=== PATIENT | male | born 1965 | race Caucasian/White ===

== ENCOUNTER 2016-06-26 16:24 | Inpatient (IN) | payer BC ==
[~2016-06-26] VITALS: Ht 182.9 cm; Wt 93.0 kg
[2016-06-26] MEDS: Vancomycin 1.5 GM in D5W 325 ML IVPB SCH (01:00)
[2016-06-26] MEDS ORDERED: PROZAC10 MG ORAL (16:56)
[2016-06-26] MEDS ORDERED: DEPAKOTE250 MG PO (16:56)
[2016-06-26] MEDS ORDERED: PROPRANOLOL HCL10 MG ORAL (16:56)
[2016-06-26] MEDS ORDERED: ZYPREXA2.5 MG ORAL (16:56)
[2016-06-26] MEDS ORDERED: AMBIEN5 MG ORAL (16:56)
--- NOTE | 2016-06-26 17:14 | Emergency Room Report ---
History of Present Illness General Chief Complaint: Fever Source: Patient Present Illness HPI Patient has had blood in her urine over the past 2 days He also had reported increased fevers and chills over the past few days denies any trauma Denies any headache visual changes Patient had apparently presented to his primary physician We did find blood in the urine and sent him to the ER for further eval patient denies any flank pain denies any chest pain denies any shortness of breath he reports mild URI symptoms over the past last week Denies any neck pain or photophobia Allergies: Coded Allergies: BUPROPION (Verified Allergy, Unknown, 06/26/16) SERTRALINE (Verified Allergy, Unknown, 06/26/16) Patient History Past Medical History: see triage record Pertinent Family History: none Reviewed Nursing Documentation: PMH: Agreed, PSxH: Agreed Nursing Documentation-PMH History Of Psychiatric Problem: Yes - Bipolar Review of Systems All Other Systems: negative except mentioned in HPI Physical Exam Vital Signs Date Time Temp Pulse Resp B/P Pulse Ox O2 Delivery O2 Flow Rate FiO2 06/26/16 16:44 100.8 112 16 122/71 95 Room Air Sp02 EP Interpretation: reviewed, normal General Appearance: well appearing, no apparent distress Head: normocephalic, atraumatic Eyes: bilateral eye EOMI, bilateral eye PERRL ENT: hearing grossly normal, normal pharynx, TMs + canals normal, uvula midline Neck: full range of motion, supple, no meningismus, no bony tend Respiratory: lungs clear, normal breath sounds, no rhonchi, no respiratory distress, no retraction, no accessory muscle use Cardiovascular #1: normal peripheral pulses, regular rate, rhythm, no edema, no gallop, no JVD, no murmur Gastrointestinal: normal bowel sounds, non tender, soft, no mass, no organomegaly, non-distended, no guarding, no hernia, no pulsatile mass, no rebound Genitourinary: no CVA tenderness Musculoskeletal: normal inspection Neurologic: oriented x3, responsive, cash management associate III-XII nml as tested, motor strength/ tone normal, sensory intact Psychiatric: mood/affect normal Skin: normal color, no rash, warm/dry, palpation normal Lymphatic: normal inspection, no adenopathy Medical Decision Making Diagnostic Impression: Primary Impression: Fever Additional Impressions: Sepsis UTI (urinary tract infection) Pyelonephritis ER Course Multiple depressions considered including but not limited to Pyelo, UTI, kidney stone obstructive stone Patient's CT does not show any obvious acute pathology Urine sample does show evidence of bacteria possible hemorrhagic cystitis considered patient's white blood cell count however is elevated patient has had fever over several days and consideration for sepsis is made patient was given antibiotics here and requires further inpatient care Labs Test 06/26/16 17:11 06/26/16 17:20 Urine Color Brown Urine Appearance Turbid Urine pH 5 (4.5-8.0) Urine Specific [place] 1.015 (1.005-1.035) Urine Protein 4+ (NEGATIVE) Urine Glucose (UA) Negative (NEGATIVE) Urine Ketones 1+ (NEGATIVE) Urine Occult Blood 5+ (NEGATIVE) Urine Nitrite Negative (NEGATIVE) Urine Bilirubin Negative (NEGATIVE) Urine Urobilinogen 1 MG/DL (0.0-1.0) Urine Leukocyte Esterase 2+ (NEGATIVE) Urine RBC 10-15 /HPF (0 - 0) Urine WBC 5-10 /HPF (0 - 0) Urine Squamous Epithelial Cells None /LPF (NONE/OCC) Urine Amorphous Sediment Few /LPF (NONE) Urine Bacteria Moderate /HPF (NONE) Urine Yeast Moderate /HPF (NONE) White Blood Count 14.4 K/UL (4.8-10.8) Red Blood Count 4.51 M/UL (4.70-6.10) Hemoglobin 13.4 G/DL (14.2-18.0) Hematocrit 40.6 % (42.0-52.0) Mean Corpuscular Volume 90 FL (80-99) Mean Corpuscular Hemoglobin 29.6 PG (27.0-31.0) Mean Corpuscular Hemoglobin Concent 33.0 G/DL (32.0-36.0) Red Cell Distribution Width 11.8 % (11.6-14.8) Platelet Count 107 K/UL (150-450) Mean Platelet Volume 9.8 FL (6.5-10.1) Neutrophils (%) (Auto) 72.6 % (45.0-75.0) Lymphocytes (%) (Auto) 8.1 % (20.0-45.0) Monocytes (%) (Auto) 17.0 % (1.0-10.0) Eosinophils (%) (Auto) 0.0 % (0.0-3.0) Basophils (%) (Auto) 2.2 % (0.0-2.0) Prothrombin Time 13.4 SEC (9.30-11.50) Prothromb Time International Ratio 1.3 (0.9-1.1) Activated Partial Thromboplast Time 30 SEC (23-33) Sodium Level 132 mEQ/L (135-145) Potassium Level 4.2 mEQ/L (3.4-4.9) Chloride Level 91 mEQ/L (98-107) Carbon Dioxide Level 27 mEQ/L (20-30) Anion Gap 14 (5-15) Blood Urea Nitrogen 18 mg/dL (7-23) Creatinine 1.3 mg/dL (0.7-1.2) Estimat Glomerular Filtration Rate 58.0 mL/min (>60) Glucose Level 115 mg/dL (74-106) Calcium Level 9.3 mg/dL (8.6-10.2) Total Bilirubin 0.9 mg/dL (0.0-1.2) Aspartate Amino Transf (AST/SGOT) 26 U/L (5-40) Alanine Aminotransferase (ALT/SGPT) 24 U/L (3-41) Alkaline Phosphatase 56 U/L (40-129) Total Protein 7.0 g/dL (6.6-8.7) Albumin 3.8 g/dL (3.5-5.2) Globulin 3.2 g/dL Albumin/Globulin Ratio 1.1 (1.0-2.7) Lipase 24 U/L (< 60) CT/MRI/US Diagnostic Results CT/MRI/US Diagnostic Results : Impression CT abdomen pelvis: No obvious acute disease Last Vital Signs Date Time Temp Pulse Resp B/P Pulse Ox O2 Delivery O2 Flow Rate FiO2 06/26/16 16:44 100.8 112 16 122/71 95 Room Air Status: improved Disposition: ELOPED Condition: Serious [place] SAAVEDRA D.O. Jun 26, 2016 17:14
[2016-06-26 17:40] LABS: BASOPHILS % (AUTO) 2.2 % (0.0-2.0); LYMPHOCYTES % (AUTO) 8.1 % (20.0-45.0); MEAN CORPUSCULAR HEMOGLOBIN 29.6 PG (27.0-31.0); MEAN CORPUSCULAR VOLUME 90 FL (80-99); MEAN PLATELET VOLUME 9.8 FL (6.5-10.1); NEUTROPHILS % (AUTO) 72.6 % (45.0-75.0); PLATELET COUNT 107 K/UL (150-450); RED BLOOD COUNT 4.51 M/UL (4.70-6.10); RED CELL DISTRIBUTION WIDTH 11.8 % (11.6-14.8); WHITE BLOOD COUNT 14.4 K/UL (4.8-10.8)
[2016-06-26 17:42] LABS: APPEARANCE,URINE TURBID; KETONES,URINE 1+ (NEGATIVE); LEUKOCYTE ESTERASE ,URINE 2+ (NEGATIVE); NITRITE,URINE NEGATIVE (NEGATIVE); PH,URINE 5 (4.5-8.0); PROTEIN,URINE 4+ (NEGATIVE); UROBILINOGEN,URINE 1 MG/DL (0.0-1.0)
[2016-06-26 17:54] LABS: INR 1.3 (0.9-1.1); PROTHROMBIN TIME 13.4 SEC (9.30-11.50)
[2016-06-26 17:56] LABS: ALBUMIN/GLOBULIN RATIO 1.1 (1.0-2.7); CALCIUM 9.3 mg/dL (8.6-10.2); CREATININE 1.3 mg/dL (0.7-1.2); POTASSIUM 4.2 mEQ/L (3.4-4.9)
[2016-06-26 18:17] LABS: AMORPHOUS SEDIMENT,UR FEW /LPF; BACTERIA,URINE MODERATE /HPF; YEAST,URINE MODERATE /HPF
[2016-06-26 19:30] VITALS: BP 130/71
[2016-06-26] MEDS ORDERED: cefTRIAXone 1 GM in NS 55 ML IVPB ONE (19:30)
[2016-06-26] MEDS ORDERED: Nitroglycerin Subl 0.4mg tab (Bottle Of 25) SL PRN (20:15)
[2016-06-26] MEDS ORDERED: Miralax 17gm pkt ORAL PRN (20:15)
[2016-06-26] MEDS ORDERED: DuoNeb 0.5-3(2.5)mg/3ml neb HHN PRN (20:15)
[2016-06-26] MEDS ORDERED: Morphine Sulfate 2mg/ml Inj IVP PRN (20:15)
[2016-06-26] MEDS ORDERED: Propranolol 10mg tab ORAL SCH (21:00)
[2016-06-26] MEDS: Heparin 5000 units/ml inj SUBQ SCH (21:00)
[2016-06-26 21:36] VITALS: BP 136/72
[2016-06-26 22:33] VITALS: BP 142/82
[2016-06-26] MEDS ORDERED: Cefepime 2gm ONE (23:33)
[2016-06-26] MEDS ORDERED: Vancomycin 1gm inj IVPB ONE (23:33)
[2016-06-27 00:41] VITALS: BP 141/78
[2016-06-27] MEDS: Cefepime HCl 2 GM in D5W 110 ML IV SCH ×2 (01:34→10:25)
[2016-06-27] MEDS ORDERED: Zolpidem 5mg tab ORAL PRN (06:00)
[2016-06-27 07:24] LABS: LYMPHOCYTES % (AUTO) 17.8 % (20.0-45.0); MEAN CORPUSCULAR HEMOGLOBIN 30.2 PG (27.0-31.0); MEAN CORPUSCULAR HGB CONC 33.7 G/DL (32.0-36.0); MEAN CORPUSCULAR VOLUME 90 FL (80-99); MEAN PLATELET VOLUME 10.1 FL (6.5-10.1); MONOCYTES % (AUTO) 17.6 % (1.0-10.0); NEUTROPHILS % (AUTO) 63.6 % (45.0-75.0); PLATELET COUNT 102 K/UL (150-450); RED BLOOD COUNT 4.04 M/UL (4.70-6.10); RED CELL DISTRIBUTION WIDTH 11.4 % (11.6-14.8)
[2016-06-27 07:35] LABS: ALANINE AMINOTRANSFERASE 21 U/L (3-41); ANION GAP 15 (5-15); ASPARTATE AMINO TRANSFERASE 22 U/L (5-40); CALCIUM 9.3 mg/dL (8.6-10.2); CARBON DIOXIDE 27 mEQ/L (20-30); CHLORIDE 96 mEQ/L (98-107); CREATININE 1.1 mg/dL (0.7-1.2); GLOMERULAR FILTRATION RATE > 60 mL/min (>60); HEMOLYSIS 1; SODIUM 138 mEQ/L (135-145); TOTAL PROTEIN 6.4 g/dL (6.6-8.7)
[2016-06-27] MEDS ORDERED: Promethazine/Codeine 5ml UD ORAL PRN (07:45)
[2016-06-27 08:12] LABS: APPEARANCE,URINE CLEAR; KETONES,URINE NEGATIVE (NEGATIVE); PH,URINE 7 (4.5-8.0); PROTEIN,URINE 1+ (NEGATIVE)
[2016-06-27 08:13] LABS: BACTERIA,URINE OCCASIONAL /HPF; LEUKOCYTE ESTERASE ,URINE 1+ (NEGATIVE); NITRITE,URINE NEGATIVE (NEGATIVE); RBC,URINE 30-40 /HPF (0 - 0); SQUAMOUS EPITHELIAL CELL,UR OCCASIONAL /LPF (NONE/OCC); UROBILINOGEN,URINE NORMAL MG/DL (0.0-1.0)
[2016-06-27 08:27] VITALS: BP 126/71
[2016-06-27] MEDS: Heparin 5000 units/ml inj SUBQ SCH (08:52)
[2016-06-27] MEDS ORDERED: OLANZapine 2.5mg tab ORAL SCH ×2 (09:00→21:00)
[2016-06-27] MEDS ORDERED: FLUoxetine 10mg cap ORAL SCH ×2 (09:00)
[2016-06-27] MEDS ORDERED: Propranolol 10mg tab ORAL SCH (09:00)
[2016-06-27] MEDS ORDERED: Propranolol 10mg tab ORAL ONE (09:00)
--- NOTE | 2016-06-27 10:57 | Diagnostic Imaging Report ---
Indication: Abdominal pain, blood in urine over the past 2 days Technique: Spiral acquisitions obtained through the abdomen and pelvis. No oral contrast utilized, per emergency room physician request No IV contrast utilized, per referring physician request.. Multiplanar reconstructions were generated. Total dose length product 1013 mGycm. CTDIvol(s) 16 mGy Comparison: None Findings: No renal or ureteral calculi demonstrated. No hydronephrosis nor hydroureter. The lack of IV contrast limits assessment of the renal parenchyma. No gross renal mass or cyst demonstrated. The prostate is prominent. The bladder is nondistended. The appendix is normal. No evidence of diverticulosis or diverticulitis. No small bowel distention. No free or loculated intraperitoneal air or fluid. There is a tiny fat containing umbilical hernia. There is a small fat-containing left inguinal hernia. Lack of IV contrast limits assessment of the other solid organs. The liver demonstrates a subcentimeter low-attenuation lesion in segment 2, too small to characterize. The gallbladder is nondistended. No definite stones. No biliary ductal dilatation. The pancreas, spleen, are unremarkable. No retroperitoneal or mesenteric mass or adenopathy. No pelvic mass or adenopathy. The included lung bases demonstrate some consolidation and atelectasis bilaterally. 3 mm nodule is seen in the right middle lobe, image 17 of series 5. The bones are unremarkable. Impression: No findings to explain stated clinical history of hematuria. No evidence of urinary stone disease. Note, however, limited assessment of the urinary tract in the absence of IV contrast. Recommend multiphasic postcontrast scanning, as clinically indicated No acute abnormality or findings to explain stated clinical history of abdominal pain 3 mm right middle lobe lung nodule. If there is no significant smoking history or other risk factors for lung carcinoma, no further followup is necessary. If there are risk factors, recommend 6-[address] Subcentimeter left lobe liver low-attenuation lesion, too small to characterize, most likely benign simple cysts or bile hamartomas. No further followup necessary Basilar consolidation and atelectasis bilaterally Incidental findings as noted, including fat-containing umbilical and left inguinal hernias This agrees with the preliminary interpretation provided overnight by Dr. Andino The CT scanner at [facility] [place] is accredited by the [employer] and the scans are performed using protocols designed to limit radiation exposure to as low as reasonably achievable to attain images of sufficient resolution adequate for diagnostic evaluation.
[2016-06-27] MEDS: Vancomycin 1.5 GM in D5W 325 ML IVPB SCH (11:12)
--- NOTE | 2016-06-27 11:19 | Consultation ---
Consult Note Consult Note ID # [id number] ANGEL MARRERO M.D. Jun 27, 2016 11:19
[2016-06-27 12:00] VITALS: BP 120/70
--- NOTE | 2016-06-27 12:17 | Diagnostic Imaging Report ---
Indication: DYSPNEA Technique: One view of the chest Comparison: none Findings: Lung volumes are low. This results in crowding of the vascular markings and basilar atelectatic changes. The heart is borderline enlarged. No focal airspace consolidation. No effusions Impression: Hypoventilatory exam. Bibasilar atelectasis No definite acute process otherwise
--- NOTE | 2016-06-27 15:59 | History and Physical ---
History of Present Illness General Date patient seen: Jun 27, 2016 Reason for Hospitalization: Fever Present Illness HPI 51 year old male with hx of depression, anxiety presented to ER with CC of blood in her urine, fevers and chills over the past few days denies any trauma He was diagnosed to have pyelonephritis and admitted for further care. Allergies: Coded Allergies: BUPROPION (Verified Allergy, Unknown, 06/26/16) SERTRALINE (Verified Allergy, Unknown, 06/26/16) Medication History Scheduled Divalproex Sodium* (Depakote*), 250 MG PO Q12HR, (Reported) Fluoxetine Hcl* (Prozac*), 10 MG ORAL DAILY, (Reported) Olanzapine* (Zyprexa*), 2.5 MG ORAL DAILY, (Reported) Propranolol Hcl* (Inderal*), 10 MG ORAL THREE TIMES A DAY, (Reported) Scheduled PRN Zolpidem Tartrate* (Ambien*), 5 MG ORAL BEDTIME PRN for Insomnia, (Reported) Patient History Healthcare decision maker N/A Resuscitation status Full Code Advanced Directive on File Past Medical/Surgical History Past Medical/Surgical History: (1) Depression Review of Systems All Other Systems: negative except mentioned in HPI Physical Exam Lines, tubes and drains: peripheral, central line HEENT: normocephalic, atraumatic, PERRL Neck: non-tender Respiratory/Chest: chest wall non-tender, normal breath sounds Cardiovascular/Chest: normal peripheral pulses, regular rhythm Last 24 Hour Vital Signs Date Time Temp Pulse Resp B/P Pulse Ox O2 Delivery O2 Flow Rate FiO2 06/27/16 12:00 98.2 92 18 120/70 96 Room Air 06/27/16 09:12 116 18 Room Air 21 06/27/16 08:51 116 105/66 06/27/16 08:27 98.1 91 18 126/71 98 Room Air 06/27/16 00:41 100.2 98 20 141/78 98 Room Air 06/26/16 22:46 101 142/82 06/26/16 22:33 99.9 101 20 142/82 98 Room Air 06/26/16 21:42 100.2 95 16 136/72 95 Room Air 06/26/16 21:36 100.2 95 16 136/72 95 Room Air 06/26/16 19:30 100.2 90 16 130/71 95 Room Air 06/26/16 16:44 100.8 112 16 122/71 95 Room Air Intake and Output 06/26/16 06/27/16 19:00 07:00 Intake Total 295 ml Output Total 50 ml Balance 245 ml Intake Oral 240 ml IV Total 55 ml Output Urine Total 50 ml # Voids 6 Laboratory Tests Test 06/26/16 17:11 06/26/16 17:20 06/27/16 03:00 06/27/16 05:10 Urine Color Brown Pale yellow Urine Appearance Turbid Clear Urine pH 5 (4.5-8.0) 7 (4.5-8.0) Urine Specific [place] 1.015 (1.005-1.035) 1.005 (1.005-1.035) Urine Protein 4+ (NEGATIVE) H 1+ (NEGATIVE) H Urine Glucose (UA) Negative (NEGATIVE) Negative (NEGATIVE) Urine Ketones 1+ (NEGATIVE) H Negative (NEGATIVE) Urine Occult Blood 5+ (NEGATIVE) H 5+ (NEGATIVE) H Urine Nitrite Negative (NEGATIVE) Negative (NEGATIVE) Urine Bilirubin Negative (NEGATIVE) Negative (NEGATIVE) Urine Urobilinogen 1 MG/DL (0.0-1.0) H Normal MG/DL (0.0-1.0) Urine Leukocyte Esterase 2+ (NEGATIVE) H 1+ (NEGATIVE) H Urine RBC 10-15 /HPF (0 - 0) H 30-40 /HPF (0 - 0) H Urine WBC 5-10 /HPF (0 - 0) H 2-4 /HPF (0 - 0) Urine Squamous Epithelial Cells None /LPF (NONE/OCC) Occasional /LPF Urine Amorphous Sediment Few /LPF (NONE) H Urine Bacteria Moderate /HPF (NONE) H Occasional /HPF (NONE) Urine Yeast Moderate /HPF (NONE) H White Blood Count 14.4 K/UL (4.8-10.8) H 13.0 K/UL (4.8-10.8) H Red Blood Count 4.51 M/UL (4.70-6.10) L 4.04 M/UL (4.70-6.10) L Hemoglobin 13.4 G/DL (14.2-18.0) L 12.2 G/DL (14.2-18.0) L Hematocrit 40.6 % (42.0-52.0) L 36.2 % (42.0-52.0) L Mean Corpuscular Volume 90 FL (80-99) 90 FL (80-99) Mean Corpuscular Hemoglobin 29.6 PG (27.0-31.0) 30.2 PG (27.0-31.0) Mean Corpuscular Hemoglobin Concent 33.0 G/DL (32.0-36.0) 33.7 G/DL (32.0-36.0) Red Cell Distribution Width 11.8 % (11.6-14.8) 11.4 % (11.6-14.8) L Platelet Count 107 K/UL (150-450) L 102 K/UL (150-450) L Mean Platelet Volume 9.8 FL (6.5-10.1) 10.1 FL (6.5-10.1) Neutrophils (%) (Auto) 72.6 % (45.0-75.0) 63.6 % (45.0-75.0) Lymphocytes (%) (Auto) 8.1 % (20.0-45.0) L 17.8 % (20.0-45.0) L Monocytes (%) (Auto) 17.0 % (1.0-10.0) H 17.6 % (1.0-10.0) H Eosinophils (%) (Auto) 0.0 % (0.0-3.0) 0.0 % (0.0-3.0) Basophils (%) (Auto) 2.2 % (0.0-2.0) H 1.0 % (0.0-2.0) Prothrombin Time 13.4 SEC (9.30-11.50) H Prothromb Time International Ratio 1.3 (0.9-1.1) H Activated Partial Thromboplast Time 30 SEC (23-33) Sodium Level 132 mEQ/L (135-145) L 138 mEQ/L (135-145) Potassium Level 4.2 mEQ/L (3.4-4.9) 4.0 mEQ/L (3.4-4.9) Chloride Level 91 mEQ/L (98-107) L 96 mEQ/L (98-107) L Carbon Dioxide Level 27 mEQ/L (20-30) 27 mEQ/L (20-30) Anion Gap 14 (5-15) 15 (5-15) Blood Urea Nitrogen 18 mg/dL (7-23) 19 mg/dL (7-23) Creatinine 1.3 mg/dL (0.7-1.2) H 1.1 mg/dL (0.7-1.2) Estimat Glomerular Filtration Rate 58.0 mL/min (>60) > 60 mL/min (>60) Glucose Level 115 mg/dL (74-106) H 99 mg/dL (74-106) Calcium Level 9.3 mg/dL (8.6-10.2) 9.3 mg/dL (8.6-10.2) Total Bilirubin 0.9 mg/dL (0.0-1.2) 0.7 mg/dL (0.0-1.2) Aspartate Amino Transf (AST/SGOT) 26 U/L (5-40) 22 U/L (5-40) Alanine Aminotransferase (ALT/SGPT) 24 U/L (3-41) 21 U/L (3-41) Alkaline Phosphatase 56 U/L (40-129) 64 U/L (40-129) Total Protein 7.0 g/dL (6.6-8.7) 6.4 g/dL (6.6-8.7) L Albumin 3.8 g/dL (3.5-5.2) 3.2 g/dL (3.5-5.2) L Globulin 3.2 g/dL 3.2 g/dL Albumin/Globulin Ratio 1.1 (1.0-2.7) 1.0 (1.0-2.7) Lipase 24 U/L (< 60) Microbiology Date/Time Source Procedure Growth Status 06/26/16 17:11 Urine,Clean Catch Urine Culture - Preliminary NO GROWTH Resulted Height (Feet): 6 Height (Inches): 0.00 Weight (Pounds): 205 Medications Current Medications Medications (Trade) Dose Ordered Sig/Christy Route PRN Reason Start Time Stop Time Status Last Admin Dose Admin Acetaminophen (Tylenol) 650 mg Q4H PRN ORAL fever 06/26/16 20:15 07/26/16 20:14 Albuterol/ Ipratropium 3 ml 3 ml Q4H PRN HHN Shortness of Breath 06/26/16 20:15 07/01/16 20:14 Cefepime HCl/ Dextrose (Maxipime/D5W) 110 ml @ 220 mls/hr Q12HR@1000,2200 IV 06/26/16 22:00 07/03/16 21:59 06/27/16 10:25 Divalproex Sodium (Depakote) 1,000 mg BEDTIME ORAL 06/27/16 21:00 07/27/16 20:59 Fluoxetine HCl (PROzac) 20 mg DAILY ORAL 06/27/16 09:00 07/27/16 08:59 06/27/16 08:51 Heparin Sodium (Porcine) (Heparin 5000 units/ml) 5,000 units EVERY 12 HOURS SUBQ 06/26/16 21:00 07/26/16 20:59 Morphine Sulfate (Morphine Sulfate) 2 mg Q4H PRN IVP Moderate Pain (Pain Scale 4-6) 06/26/16 20:15 07/03/16 20:14 Nitroglycerin (Ntg) 0.4 mg Q5MIN X 3 DOSES PRN SL Prn Chest Pain 06/26/16 20:15 07/26/16 20:14 Olanzapine (ZyPREXA) 2.5 mg QHS ORAL 06/27/16 21:00 07/27/16 20:59 Ondansetron HCl (Zofran) 4 mg Q6H PRN IVP Nausea & Vomiting 06/26/16 20:15 07/26/16 20:14 Polyethylene Glycol (Miralax) 17 gm DAILYPRN PRN ORAL Constipation 06/26/16 20:15 07/26/16 20:14 Promethazine HCl/ Codeine (Phenergan with Codeine) 5 ml Q6H PRN ORAL For Cough 06/27/16 07:45 07/27/16 07:44 Propranolol HCl (Inderal) 20 mg Q12HR ORAL 06/27/16 09:00 07/27/16 08:59 06/27/16 08:51 Temazepam (Restoril) 15 mg HSPRN PRN ORAL Insomnia 06/26/16 20:15 07/03/16 20:14 Zolpidem Tartrate (Ambien) 10 mg HSPRN PRN ORAL Insomnia 06/27/16 06:00 07/27/16 05:59 Assessment/Plan Problem List: (1) Fever ICD Codes: R50.9 - Fever, unspecified SNOMED: 063571237 (2) Sepsis ICD Codes: A41.9 - Sepsis, unspecified organism SNOMED: 81105685 (3) UTI (urinary tract infection) ICD Codes: N39.0 - Urinary tract infection, site not specified SNOMED: 21497680 (4) Depression ICD Codes: F32.9 - Major depressive disorder, single episode, unspecified SNOMED: 26589617 (5) Pyelonephritis ICD Codes: N12 - Tubulo-interstitial nephritis, not specified as acute or chronic SNOMED: 27649187 Assessment/Plan IV antibiotics IV hydration check cultures FERMIN APPLE Jun 27, 2016 15:59
[2016-06-27 16:00] VITALS: BP 121/71
[2016-06-27] MEDS ORDERED: NS 275ml ONE (16:39)
[2016-06-27] MEDS ORDERED: D5W 275ml ONE (16:39)
--- NOTE | 2016-06-27 18:17 | Consultation ---
DATE OF CONSULTATION: INFECTIOUS DISEASE CONSULTATION HISTORY OF PRESENT ILLNESS: The patient is a 51-year-old male, who was admitted to this medical history due to hematuria, dysuria, and fever and was admitted with the impression of urinary tract infection. Infectious Disease consultation has been requested for further evaluation of the patient and antibiotic management. PAST MEDICAL HISTORY: Significant for, 1. Bipolar disorder. 2. Depression. 3. Anxiety. MEDICATIONS: IV vancomycin and cefepime. ALLERGIES: Ibuprofen and sertraline. FAMILY HISTORY: Noncontributory. REVIEW OF SYSTEMS: HEENT: No recent change in vision or hearing. Pulmonary: No cough or shortness of breath. Cardiovascular: No chest pain or palpitation. Gastrointestinal: No nausea or vomiting. Genitourinary: As mentioned above. Neurologic: No seizure. PHYSICAL EXAMINATION: VITAL SIGNS: Temperature 100.2 degrees, pulse 86, respiratory rate 18, blood pressure 141/78, and T-max 100.8 degrees. HEENT: Mild pale conjunctivae. No icterus. NECK: No lymphadenopathy. CHEST: Coarse breathing sounds. HEART: S1 and S2. ABDOMEN: Soft. EXTREMITIES: No cyanosis. NEUROLOGIC: Alert. BACK: No flank tenderness. LABORATORY DATA: White blood cells at the time of admission 14 and today is 13, hemoglobin 12, and platelets 102,000. UA, 20 to 40 red blood cells and 2 to 4 white blood cells. BUN 19 and creatinine 1.2. ALT, AST, and alkaline phosphatase unremarkable. Urine culture is pending and also CT scan of the abdomen. No evidence of renal stone or basilar atelectasis. ASSESSMENT: The patient is a 51-year-old male with multiple medical problems, who was admitted to this medical center for hematuria, fever, dysuria, and urinary tract infection. Urine culture is still pending. The patient overall has felt better since admission. PLAN: 1. We will continue the patient on intravenous cefepime and discontinue vancomycin. 2. Monitor CBC. 3. Monitor BMP. 4. Monitor cultures of blood and urine. 5. Based on the patient's clinical course and laboratories, we will do further recommendation. Thank you, Dr. Ribeiro, for allowing me to participate in the care of this patient. I will follow the patient with you during this hospitalization. Chencho Hinton M.D. DR: LUIS JOB#: [id number] CC:
[2016-06-27] MEDS ORDERED: Depakote 500mg tab ORAL SCH (21:00)
--- NOTE | 2016-06-29 09:57 | Discharge Summary ---
Discharge Summary Hospital Course Date of Admission Jun 26, 2016 at 19:45 Date of Discharge Jun 27, 2016 at 16:40 Admitting Diagnosis pyelonephritis HPI Armen Abdi is a 51 year old male who was admitted on Jun 26, 2016 at 19:45 for Pyelonephritis Hospital Course [id number] Discharge Discharge Disposition Patient left AMA Discharge Diagnoses: Umm Coles NP Jun 29, 2016 09:57
--- NOTE | 2016-06-30 00:29 | Discharge Summary 2 SIG ---
DATE OF ADMISSION: 06/26/2016 DATE OF DISCHARGE: 06/27/2016 AMBULANCE DISPATCHER: Chencho Hinton M.D. BRIEF HOSPITAL COURSE: The patient is a 51-year-old male who presented to ED because of fever and chills. The patient states that he has blood in the urine for the past two days and had apparently presented to his primary physician. He denies any flank pain and denies shortness of breath. On evaluation at the ED, the patient was febrile. Temperature was 100.8 and urinalysis showed presence of blood. CT of the abdomen showed no findings to explain hematuria. No evidence of urinary stones; however, the exam was limited in absence of IV contrast with an incidental finding of a 3 millimeter right middle lobe lung nodule. He was diagnosed to have pyelonephritis and was admitted for further care. Infectious disease specialist was consulted and was initially given cefepime and vancomycin. He was given IV hydration. Due to insurance, the patient was ordered for transfer to [facility]; however, before transfer, the patient signed out against medical advice and stated that he does not want to be admitted. FINAL DIAGNOSES: 1. Sepsis. 2. Acute pyelonephritis. 3. Noncompliance. Jacky Ribeiro M.D. I have been assigned to dictate discharge summary on this account and I was not involved in the patient's management. Umm Coles N.P. DR: LISA JOB#: [id number] CC: RADHA
== END 2016-06-27 16:40 | disposition left against medical advice (07) | DRG 872 ==
LOC: EMR 17:08 → 4W 19:45 → EDBEDREQ 21:03 → 3E 21:44
DX: A41.9 Sepsis, unspecified organism (principal); N10 Acute pyelonephritis; F41.9 Anxiety disorder, unspecified; Z88.6 Allergy status to analgesic agent; Z88.8 Allergy status to other drugs, medicaments and biological substances; F32.9 Major depressive disorder, single episode, unspecified
CPT/HCPCS: 36415; 71010; 74176; 80053; 81001; 81003; 83690; 85025; 85610; 85730; 87086; 94664